=== PATIENT | male | born 1945 | race Caucasian/White ===

== ENCOUNTER 2016-12-12 16:20 | Emergency (ER) | payer OTHER ==
[~2016-12-12] VITALS: Ht 180.3 cm; Wt 89.0 kg
[2016-12-12 16:27] VITALS: BP 146/81; PULSE 64; RESP 16; TEMP 98.5; O2SAT 97
[2016-12-12 17:05] LABS: BLOOD, URINE SMALL (NEG); GLUCOSE,URINE NEG (NEG); KETONE, URINE NEG (NEG); NITRITE,URINE NEG (NEG)
[2016-12-12 17:07] LABS: METHOD OF COLLECTION CLEAN CATCH; URINE COLOR YELLOW (YELLW/STRAW)
[2016-12-12 17:23] LABS: RBC, URINE 15-19 /hpf (0-3); SQUAMOUS EPITHELIAL CELL URINE 0-5 /hpf (0-5); WBC, URINE 0-2 /hpf (0-5)
[2016-12-12 17:24] LABS: COMMENT (UR) CULT NOT INDICATED; CULTURE IF INDICATED CULT NOT INDICATED
--- NOTE | 2016-12-12 21:06 | PD ---
HPI Chief Complaint: Complaint Time Seen by Provider: 20:53 Travel History International Travel<30 days: No Contact w/Intl Traveler<30days: No Traveled to known affect area: No History of Present Illness HPI 71-year-old male from [place] here for the winter, presents for evaluation of hematuria. The patient noticed hematuria initially when he woke up this morning. Throughout the day his urine was clear. He had another episode of hematuria this evening. He describes bright red blood from his urethra. No dysuria. No abdominal pain. He takes 81 mg of aspirin daily. No other antiplatelets or anticoagulants. He smoked cigarettes for about a year while he was in college. History of skin cancers including melanoma and basal cell carcinoma, no other cancer history. PFSH Past Medical History Hx Anticoagulant Therapy: Yes (ASPIRIN) Cardiovascular Problems: Yes ("enlarged heart") High Cholesterol: Yes Inguinal Hernia: Yes (repaired long ago) Musculoskeletal: Yes ( l knee surgery) Tetanus Vaccination: > 5 Years Influenza Vaccination: No Social History Alcohol Use: Yes (occ) Tobacco Use: Yes Allergies-Medications (Allergen,Severity, Reaction): Coded Allergies: Penicillin (Verified Allergy, Intermediate, 12/12/16) pt not sure about severity/symptons Reported Meds & Prescriptions Reported Meds & Active Scripts Active Reported Vitamins & Minerals (Multiple Vitamins W/ Minerals) 1 Tab Tab Aspirin 81 Mg Tabdr 81 Mg PO DAILY Lisinopril 40 Mg Tab 40 Mg PO DAILY Fenofibrate 160 Mg Tab 160 Mg PO DAILY Carvedilol 25 Mg Tab 25 Mg PO BID Atorvastatin (Atorvastatin Calcium) 20 Mg Tab 20 Mg PO HS Amlodipine (Amlodipine Besylate) 5 Mg Tab 5 Mg PO DAILY Review of Systems Except as stated in HPI: all other systems reviewed are Neg Physical Exam Narrative GENERAL: Well-developed, well-nourished, comfortable, no acute distress. SKIN: Warm and dry. No pallor. HEAD: Atraumatic. Normocephalic. EYES: Pupils equal and round. No scleral icterus. No injection or drainage. ENT: Mucous membranes pink and moist. CARDIOVASCULAR: Regular rate and rhythm. No murmur appreciated. RESPIRATORY: No accessory muscle use. Clear to auscultation. Breath sounds equal bilaterally. GASTROINTESTINAL: Abdomen soft, non-tender, nondistended. Reducible right inguinal hernia. MUSCULOSKELETAL: No obvious deformities. No clubbing. No cyanosis. No edema. NEUROLOGICAL: Awake and alert. No obvious cranial nerve deficits. Motor grossly within normal limits. Normal speech. PSYCHIATRIC: Appropriate mood and affect; insight and judgment normal. Data Data Last Documented VS Vital Signs Date Time Temp Pulse Resp B/P Pulse Ox O2 Delivery O2 Flow Rate FiO2 12/12/16 21:24 98 Room Air 12/12/16 16:27 98.5 64 16 146/81 Orders Urinalysis - C+S If Indicated (12/12/16 16:49) Urine Culture (12/12/16 20:54) Complete Blood Count With Diff (12/12/16 21:03) Comprehensive Metabolic Panel (12/12/16 21:03) Prothrombin Time / Inr (Pt) (12/12/16 21:03) Act Partial Throm Time (Ptt) (12/12/16 21:03) Ct Abd/Pel W/O Iv Contrast (12/12/16 21:03) Iv Access Insert/Monitor (12/12/16 21:03) Ecg Monitoring (12/12/16 21:03) Oximetry (12/12/16 21:03) Sodium Chloride 0.9% Flush (Ns Flush) (12/12/16 21:15) Labs Laboratory Tests Test 12/12/16 12/12/16 16:51 21:20 Urine Collection Type CLEAN CATCH Urine Color YELLOW Urine Turbidity CLEAR Urine pH 6.0 Urine Specific [place] 1.012 Urine Protein NEG mg/dL Urine Glucose (UA) NEG mg/dL Urine Ketones NEG mg/dL Urine Occult Blood SMALL Urine Nitrite NEG Urine Bilirubin NEG Urine Leukocyte Esterase TRACE Urine RBC 15-19 /hpf Urine WBC 0-2 /hpf Urine Squamous Epithelial 0-5 /hpf Cells Microscopic Urinalysis Comment CULT NOT INDICATED Urine Collection Time 16:51 White Blood Count 7.2 TH/MM3 Red Blood Count 4.28 MIL/MM3 Hemoglobin 13.1 GM/DL Hematocrit 38.9 % Mean Corpuscular Volume 90.7 FL Mean Corpuscular Hemoglobin 30.7 PG Mean Corpuscular Hemoglobin 33.8 % Concent Red Cell Distribution Width 12.4 % Platelet Count 229 TH/MM3 Mean Platelet Volume 8.7 FL Neutrophils (%) (Auto) 68.7 % Lymphocytes (%) (Auto) 21.4 % Monocytes (%) (Auto) 6.8 % Eosinophils (%) (Auto) 2.6 % Basophils (%) (Auto) 0.5 % Neutrophils # (Auto) 5.0 TH/MM3 Lymphocytes # (Auto) 1.5 TH/MM3 Monocytes # (Auto) 0.5 TH/MM3 Eosinophils # (Auto) 0.2 TH/MM3 Basophils # (Auto) 0.0 TH/MM3 CBC Comment DIFF FINAL Differential Comment Prothrombin Time 12.1 SEC Prothromb Time International 1.1 RATIO Ratio Activated Partial 27.5 SEC Thromboplast Time Sodium Level 144 MEQ/L Potassium Level 3.6 MEQ/L Chloride Level 108 MEQ/L Carbon Dioxide Level 27.9 MEQ/L Anion Gap 8 MEQ/L Blood Urea Nitrogen 18 MG/DL Creatinine 1.00 MG/DL Estimat Glomerular Filtration 73 ML/MIN Rate Random Glucose 100 MG/DL Calcium Level 9.0 MG/DL Total Bilirubin 0.7 MG/DL Aspartate Amino Transf 14 U/L (AST/SGOT) Alanine Aminotransferase 19 U/L (ALT/SGPT) Alkaline Phosphatase 60 U/L Total Protein 6.9 GM/DL Albumin 3.9 GM/DL [facility] Medical Decision Making Medical Screen Exam Complete: Yes Emergency Medical Condition: Yes Differential Diagnosis UTI, cystitis, nephrolithiasis, prostatitis, cancer Narrative Course Vital signs reviewed. CBC is unremarkable. CMP is unremarkable. Coags UA shows small occult blood, trace leukocyte esterase, 15-[address] abdomen pelvis: CONCLUSION: 1. Nonspecific low density lesion in the liver and spleen. 2. No renal calculi or hydronephrosis. 3. Right fat-containing inguinal hernia. Patient and the patient's were made aware of all findings. He is resting comfortably. Abdominal exam is benign. He was given a copy of the CT abdomen pelvis report. I will start him on Cipro for his hematuria with trace leukocyte esterase. I will give him the name of the urologist home sales consultant with whom to follow-up with this week. He was informed on when to return to the emergency department. He verbalizes understanding and agreement with plan. Diagnosis Primary Impression: Hematuria Referrals: Brendan Joiner MD 3 days Additional Instructions: Follow-up with urologist Dr. Joiner or a urologist of your choice this week. Follow-up with a primary care physician this week. Return to the emergency department for worsening symptoms or any other concerns. Scripts Ciprofloxacin (Cipro)500 Mg [id number] Mg PO BID 10 Days Ref 0 Prov:Neptali Asher MD 12/12/16 Disposition: 01 DISCHARGE HOME Condition: Stable Neptali Asher MD Dec 12, 2016 21:06
[2016-12-12] MEDS ORDERED: SODIUM CHLORIDE 0.9% FLUSH 5 ML FLUSH IVF PRN (21:15)
[2016-12-12 21:24] VITALS: O2SAT 98
[2016-12-12] MEDS ORDERED: ASPI1TAB69 PO (21:28)
[2016-12-12] MEDS ORDERED: ATOR20TA15 PO (21:28)
[2016-12-12] MEDS ORDERED: LISI40TA PO (21:28)
[2016-12-12] MEDS ORDERED: VITATAB9 (21:28)
[2016-12-12] MEDS ORDERED: AMLO5TAB2 PO (21:28)
[2016-12-12] MEDS ORDERED: FENO160T PO (21:28)
[2016-12-12] MEDS ORDERED: CARV25TA PO (21:28)
--- NOTE | 2016-12-12 21:28 | RADHPO ---
EXAM DATE/TIME: 12/12/2016 21:10 [facility] COMPARISON: No previous studies available for comparison. INDICATIONS : Hematuria. ORAL CONTRAST: No oral contrast ingested. RADIATION DOSE: 22.24 CTDIvol (mGy) MEDICAL HISTORY : Hernia, inguinal. SURGICAL HISTORY : Inguinal hernia repair. ENCOUNTER: Initial ACUITY: 1 day PAIN SCALE: 0/10 LOCATION: abdomen TECHNIQUE: Volumetric scanning of the abdomen and pelvis was performed. Using automated exposure control and ad justment of the mA and/or kV according to patient size, radiation dose was kept as low as reasonably achievable to obtain optimal diagnostic quality images. FINDINGS: LOWER LUNGS: The visualized lower lungs are clear. LIVER: Homogeneous density. There is no dilation of the biliary tree. No calcified gallstones. 2 cm low-de nsity lesion along the lateral right lobe. SPLEEN: Normal size with 1 cm low-density lesion. PANCREAS: Within normal limits. KIDNEYS: Normal in size and shape. There is no mass, stone, or hydronephrosis. ADRENAL GLANDS: Within normal limits. VASCULAR: There is no aortic aneurysm. BOWEL/MESENTERY: The stomach, small bowel, and colon demonstrate no acute abnormality. There is no free intraperitone al air or fluid. ABDOMINAL WALL: Within normal limits. RETROPERITONEUM: There is no lymphadenopathy. BLADDER: No wall thickening or mass. REPRODUCTIVE: Within normal limits. INGUINAL: Fat-containing right inguinal hernia. MUSCULOSKELETAL: Within normal limits for patient age. CONCLUSION: 1. Nonspecific low density lesion in the liver and spleen. 2. No renal calculi or hydronephrosis. 3. Right fat-containing inguinal hernia. Herson Elise MD on December 12, 2016 at 21:24 Board Certified Radiologist. This report was verified electronically.
[2016-12-12 21:32] LABS: BASOPHIL % 0.5 % (0.0-2.0); EOSINOPHIL # 0.2 TH/MM3 (0-0.4); EOSINOPHIL % 2.6 % (0.0-4.0); HEMATOCRIT 38.9 % (39.0-51.0); HEMO FLAGS DIFF FINAL; LYMPH % 21.4 % (9.0-44.0); LYMPHOCYTE # 1.5 TH/MM3 (1.0-4.8); MEAN CELL VOLUME 90.7 FL (80.0-100.0); MEAN CORPUSCULAR HEMOGLOBIN 30.7 PG (27.0-34.0); MEAN CORPUSCULAR HGB CONC 33.8 % (32.0-36.0); MONO % 6.8 % (0.0-8.0); NEUT % 68.7 % (16.0-70.0); PLATELET COUNT 229 TH/MM3 (150-450); RED BLOOD COUNT 4.28 MIL/MM3 (4.50-5.90); RED CELL DISTRIBUTION WIDTH 12.4 % (11.6-17.2); WHITE BLOOD COUNT 7.2 TH/MM3 (4.0-11.0)
[2016-12-12 21:40] LABS: CHLORIDE 108 MEQ/L (98-107); POTASSIUM 3.6 MEQ/L (3.5-5.1); SODIUM (NA) 144 MEQ/L (136-145)
[2016-12-12 21:44] LABS: ANION GAP 8 MEQ/L (5-15); BICARBONATE 27.9 MEQ/L (21.0-32.0); BLOOD UREA NITROGEN 18 MG/DL (7-18)
[2016-12-12 21:47] LABS: ALT (GPT) 19 U/L (12-78); AST (GOT) 14 U/L (15-37); GLOMERULAR FILTRATION RATE 73 ML/MIN (>89)
[2016-12-12 21:48] LABS: TOTAL BILIRUBIN ADULT 0.7 MG/DL (0.2-1.0)
[2016-12-12 21:50] LABS: ALKALINE PHOSPHATASE 60 U/L (45-117)
[2016-12-12 21:52] LABS: APTT (PATIENT) 27.5 SEC (24.3-30.1); INTERNATIONAL NORMALIZED RATIO 1.1 RATIO; PROTHROMBIN TIME - PATIENT 12.1 SEC (9.8-11.6)
[2016-12-12 22:00] VITALS: BP 160/82; PULSE 72; RESP 18; O2SAT 99
[2016-12-12] MEDS ORDERED: CIPR-9 PO (22:12)
[2016-12-12] MEDS ORDERED: CIPROFLOXACIN 500 MG TAB PO ONE (22:15)
[2016-12-12 22:42] VITALS: BP 162/94
== END 2016-12-12 22:47 | disposition home or self-care (01) ==
LOC: PHED 16:20
DX: R31.9 Hematuria, unspecified (principal); E78.00 Pure hypercholesterolemia, unspecified; Z79.82 Long term (current) use of aspirin; Z85.828 Personal history of other malignant neoplasm of skin; Z86.79 Personal history of other diseases of the circulatory system; Z87.39 Personal history of other diseases of the musculoskeletal system and connective tissue; Z87.891 Personal history of nicotine dependence
CPT/HCPCS: 74176; 80053; 81001; 85025; 85610; 85730; 87086